=== PATIENT | male | born 1980 | race Caucasian/White ===

== ENCOUNTER 2016-12-26 11:20 | Emergency (ER) | payer MEDICAID ==
[2016-12-26 11:30] VITALS: BMI 25.0
[2016-12-26 11:32] VITALS: BP 141/85; PULSE 78; RESP 20; TEMP 97.9; O2SAT 99
[2016-12-26] MEDS ORDERED: Oxycodone/Acetaminophen 5/325 mg Tab PO STA (12:01)
[2016-12-26] MEDS ORDERED: Oxycodone/Acetaminophen 5/325 mg Tab ONE (12:10)
--- NOTE | 2016-12-26 12:44 | ED PDOC ---
HPI: Back Time Seen by Provider: 12/26/16 11:48 Chief Complaint (Nursing): Back Pain Chief Complaint (Provider): Back pain History Per: Patient History/Exam Limitations: no limitations Onset/Duration Of Symptoms: Other (Chronic) Current Symptoms Are (Timing): Still Present Additional Complaint(s): Felton Helm is a 36 year old with a past medical history of chronic back pain and lumbar spinal fusion, who presents to the ED complaining of ongoing lumbar left lateral pain, without associated weakness, urinary problems, or numbness. Patient states they were unable to make their pain management appointment with Dr. Steiner in [place], [place] and ran out of medicine. PMD: Dr. Dave tSeiner MD Past Medical History Reviewed: Historical Data, Nursing Documentation, Vital Signs Vital Signs: Last Vital Signs Temp 97.9 F 12/26/16 11:54 Pulse 78 12/26/16 11:54 Resp 20 12/26/16 11:54 BP 141/85 12/26/16 11:54 Pulse Ox 99 12/26/16 11:54 - Medical History PMH: Asthma, Back Problems Denies: Chronic Kidney Disease - Surgical History Other surgeries: Lower spinal fusion - Family History Family History: States: Unknown Family Hx - Immunization History Hx Tetanus Toxoid Vaccination: No Hx Influenza Vaccination: No Hx Pneumococcal Vaccination: No - Home Medications Home Medications: Ambulatory Orders Medication Instructions Recorded Albuterol HFA [Ventolin HFA 90 1 puff IH Q4 PRN #1 inh 09/28/15 mcg/actuation (8 g)] - Allergies Allergies/Adverse Reactions: Allergies Allergy/AdvReac Type Severity Reaction Status Date / Time aspirin Allergy Severe SWELLING Verified 12/26/16 11:53 ibuprofen Allergy Severe SWELLING Verified 12/26/16 11:53 Review of Systems ROS Statement: Except As Marked, All Systems Reviewed And Found Negative Genitourinary Male: Negative for: Dysuria, Frequency, Incontinence Musculoskeletal: Positive for: Back Pain Neurological: Negative for: Weakness, Numbness Physical Exam - Reviewed Nursing Documentation Reviewed: Yes Vital Signs Reviewed: Yes - Physical Exam Appears: Positive for: Well, Non-toxic, No Acute Distress Head Exam: Positive for: ATRAUMATIC, NORMOCEPHALIC Skin: Positive for: Normal Color, Warm, Dry Eye Exam: Positive for: EOMI, Normal appearance, PERRL Neck: Positive for: Normal, Painless ROM, Supple Cardiovascular/Chest: Positive for: Regular Rate, Rhythm. Negative for: Murmur Respiratory: Positive for: Normal Breath Sounds. Negative for: Respiratory Distress Gastrointestinal/Abdominal: Positive for: Normal Exam, Bowel Sounds, Soft. Negative for: Tenderness, Guarding, Rebound Back: Negative for: Normal Inspection (2 healed lumbar incisions) Extremity: Positive for: Normal ROM. Negative for: Pedal Edema, Deformity Neurologic/Psych: Positive for: Alert, Oriented. Negative for: Motor/Sensory Deficits - ECG O2 Sat by Pulse Oximetry: 99 (RA) Pulse Ox Interpretation: Normal Medical Decision Making Medical Decision Making: Time: 12:01 Initial Impression: Back pain Initial Plan: --Percocet [5/325 mg] 2 tab PO --Reevalutation Scribe Attestation: Documented by Jhon Cervantes, acting as a scribe for Johny Ewing III, DO. Provider Scribe Attestation: All medical record entries made by the Scribe were at my direction and personally dictated by me. I have reviewed the chart and agree that the record accurately reflects my personal performance of the history, physical exam, medical decision making, and the department course for this patient. I have also personally directed, reviewed, and agree with the discharge instructions and disposition. Disposition - Clinical Impression Clinical Impression: Chronic back pain - Patient ED Disposition Is Patient to be Admitted: No - Disposition Disposition: Routine/Home Disposition Time: 12:24 Condition: STABLE Additional Instructions: Followup with your pain management doctor for chronic pain prescriptions. Instructions: Chronic Pain (ED)
== END 2016-12-26 12:35 | disposition home or self-care (01) ==
LOC: H.ER 11:20
DX: M54.9 Dorsalgia, unspecified (principal)

== ENCOUNTER 2017-01-26 00:24 | Emergency (ER) | payer MEDICAID ==
[2017-01-26 00:24] VITALS: BMI 25.0
[2017-01-26 00:48] VITALS: BP 151/85; PULSE 101; RESP 16; TEMP 98.7; O2SAT 98
[2017-01-26] MEDS ORDERED: Oxycodone/Acetaminophen 5/325 mg Tab PO STA (01:05)
--- NOTE | 2017-01-26 02:11 | ED PDOC ---
HPI: Back Time Seen by Provider: 01/26/17 00:48 Chief Complaint (Nursing): Back Pain Chief Complaint (Provider): Low Back Pain Onset/Duration Of Symptoms: Days (14 days ago) Current Symptoms Are (Timing): Still Present Additional Complaint(s): Felton Helm is a 36 y/o male with a past medical history of chronic back pain and asthma, who presents to the ED complaining of low back pain, onset of 14 days ago. Patient reports of recently being incarcerated and released 3 days ago, and states that he sustained a fall, which caused his back pain to worsen. He was initially evaluated at the [facility], and the report showed no acute abnormalities. Of note, patient had a discectomy spine surgery done 6 months ago. Patient reports that he currently sees a paint spray tender, Dr. Steiner, and states that he lost access to his pain medication after being incarcerated. Of note, patient request IV morphine for the pain, but the drug will not be administered unless abnormalities in the imaging studies are present. Past Medical History Reviewed: Historical Data, Nursing Documentation, Vital Signs Vital Signs: Last Vital Signs Temp 98.7 F 01/26/17 00:45 Pulse 101 H 01/26/17 00:45 Resp 16 01/26/17 00:45 BP 151/85 H 01/26/17 00:45 Pulse Ox 98 01/26/17 00:45 - Medical History PMH: Asthma, Back Problems Denies: Chronic Kidney Disease - Surgical History Other surgeries: Discectomy - Family History Family History: States: No Known Family Hx - Social History Current smoker - smoking cessation education provided: No Ex-Smoker (has not smoked in the last 12 months): No Alcohol: None Drugs: Denies - Immunization History Hx Tetanus Toxoid Vaccination: No Hx Influenza Vaccination: No Hx Pneumococcal Vaccination: No - Home Medications Home Medications: Ambulatory Orders Medication Instructions Recorded Albuterol HFA [Ventolin HFA 90 1 puff IH Q4 PRN #1 inh 09/28/15 mcg/actuation (8 g)] traMADol [Ultram] 50 mg PO Q6 #12 tab 01/26/17 - Allergies Allergies/Adverse Reactions: Allergies Allergy/AdvReac Type Severity Reaction Status Date / Time aspirin Allergy Severe SWELLING Verified 12/26/16 11:53 ibuprofen Allergy Severe SWELLING Verified 10/25/17 11:53 Review of Systems ROS Statement: Except As Marked, All Systems Reviewed And Found Negative Constitutional: Negative for: Fever Musculoskeletal: Positive for: Back Pain (low back pain) Physical Exam - Reviewed Nursing Documentation Reviewed: Yes Vital Signs Reviewed: Yes - Physical Exam Appears: Positive for: Non-toxic, No Acute Distress Head Exam: Positive for: ATRAUMATIC, NORMOCEPHALIC Skin: Positive for: Normal Color, Warm Eye Exam: Positive for: Normal appearance, EOMI, PERRL ENT: Positive for: Normal ENT Inspection Neck: Positive for: Normal, Painless ROM, Supple Cardiovascular/Chest: Positive for: Regular Rate, Rhythm. Negative for: Murmur Respiratory: Positive for: Normal Breath Sounds. Negative for: Respiratory Distress Gastrointestinal/Abdominal: Positive for: Normal Exam, Soft. Negative for: Tenderness Back: Positive for: Normal Inspection. Negative for: Other (Midline Tenderness , CVA Tenderness) Extremity: Positive for: Normal ROM. Negative for: Pedal Edema, Deformity Neurologic/Psych: Positive for: Alert, Oriented. Negative for: Motor/Sensory Deficits - ECG O2 Sat by Pulse Oximetry: 98 (RA) Pulse Ox Interpretation: Normal Medical Decision Making Medical Decision Making: Time: --01:05 Initial Impression: -- 36 y/o male with [id number] Back Pain Initial Plan: --OxyCodone/Acetaminophen 2 tab PO --Lumbar Spine W/O Contrast Reassess --02:42 FINDINGS:CT Lumbar Spine Without Intravenous Contrast Vertebrae: No acute fracture. Fusion from L5 to S1 levels with paired pedicle screws and posterior rods. No hardware complications. Resection of RIGHT L5 lower facet/lamina. Discs/spinal canal/neural foramina: 0.4 x 0.6 cm ossific or calcific density within RIGHT paracentral region of canal at L5-S1 level. No significant spinal stenosis. Soft tissues: Unremarkable. IMPRESSION: 1. No fracture. 2. Small calcific or ossific density within canal at L5-S1 level. 3. If back pain persists, consider MRI for further evaluation. Patient stable for discharge home; requesting Percocet RX. Patient informed he would not be provided RX for narcotics due to his his pain management contract with Dr Steiner. He is agreeable to 3 day supply of Ultram and will follow up with his paint spray tender. Dx Chronic Back Pain Stable Scribe Attestation: Documented by Patel Poon acting as a scribe for Paulino Schuster MD. Provider Attestation: All medical record entries made by the Scribe were at my direction and personally dictated by me. I have reviewed the chart and agree that the record accurately reflects my personal performance of the history, physical exam, medical decision making, and the department course for this patient. I have also personally directed, reviewed, and agree with the discharge instructions and disposition. Disposition - Clinical Impression Clinical Impression: Chronic back pain - Patient ED Disposition Is Patient to be Admitted: No - Disposition Disposition: Routine/Home Disposition Time: 03:00 Condition: STABLE Prescriptions: traMADol [Ultram] 50 mg PO Q6 #12 tab Instructions: Chronic Back Pain (ED) Forms: [employer] (Chinese)
--- NOTE | 2017-01-26 02:42 | CT ---
EXAM: CT Lumbar Spine Without Intravenous Contrast CLINICAL HISTORY: 36 years old, male; Pain; Low back pain; Prior surgery; Additional info: Low back pain HX discectomy TECHNIQUE: Axial computed tomography images of the lumbar spine without intravenous contrast. All CT scans at this facility use one or more dose reduction techniques, viz.: automated exposure control; ma/kV adjustment per patient size (including targeted exams where dose is matched to indication; i.e. head); or iterative reconstruction technique. Coronal and sagittal reformatted images were created and reviewed. COMPARISON: No relevant prior studies available. FINDINGS: Vertebrae: No acute fracture. Fusion from L5 to S1 levels with paired pedicle screws and posterior rods. No hardware complications. Resection of RIGHT L5 lower facet/lamina. Discs/spinal canal/neural foramina: 0.4 x 0.6 cm ossific or calcific density within RIGHT paracentral region of canal at L5-S1 level. No significant spinal stenosis. Soft tissues: Unremarkable. IMPRESSION: 1. No fracture. 2. Small calcific or ossific density within canal at L5-S1 level. 3. If back pain persists, consider MRI for further evaluation.
[2017-01-26] MEDS ORDERED: Morphine 4 MG/ML VIAL ONE (02:49)
== END 2017-01-26 03:30 | disposition home or self-care (01) ==
LOC: H.ER 00:24
DX: G89.29 Other chronic pain (principal); J45.909 Unspecified asthma, uncomplicated
CPT/HCPCS: 72131; 96372; 99282; J2270

== ENCOUNTER 2017-03-16 00:24 | Emergency (ER) | payer SELFPAY ==
[2017-03-16 00:46] VITALS: BMI 23.1
[2017-03-16 00:48] VITALS: BP 149/96; PULSE 95; RESP 16; TEMP 98.2; O2SAT 97
[2017-03-16] MEDS ORDERED: Oxycodone/Acetaminophen 5/325 mg Tab PO STA (01:36)
[2017-03-16] MEDS ORDERED: Oxycodone/Acetaminophen 5/325 mg Tab ONE (01:43)
--- NOTE | 2017-03-16 02:43 | ED PDOC ---
HPI: Back Time Seen by Provider: 03/16/17 00:58 Chief Complaint (Nursing): Back Pain Chief Complaint (Provider): Back Pain History Per: Patient History/Exam Limitations: no limitations Onset/Duration Of Symptoms: Persistent Current Symptoms Are (Timing): Constant Severity: Moderate Previous Symptoms: Chronic Pain (back - was seeing a pain management) Additional Complaint(s): 37 year old male presents to ED with complaints of back pain and has a history of lower back pain. Patient notes he used to attend physical therapy and see a pain management doctor before being discharged from that care. States he has not had pain medication since discharge and cannot take NSAIDs due to an allergic reaction. (-) recent trauma/injury, lower extremity weakness, bowel incontinence, or fever. PCP: Dr. Steiner Past Medical History Reviewed: Historical Data, Nursing Documentation, Vital Signs Vital Signs: Last Vital Signs Temp 98.2 F 03/16/17 00:45 Pulse 95 H 03/16/17 00:45 Resp 16 03/16/17 00:45 BP 149/96 H 03/16/17 00:45 Pulse Ox 97 03/16/17 00:45 - Medical History PMH: Asthma, Back Problems (chronic ) Denies: Chronic Kidney Disease - Surgical History Surgical History: Back Surgery - Family History Family History: States: Unknown Family Hx - Social History Current smoker - smoking cessation education provided: No Ex-Smoker (has not smoked in the last 12 months): Yes Alcohol: None Drugs: Cannabis - Immunization History Hx Tetanus Toxoid Vaccination: No Hx Influenza Vaccination: No Hx Pneumococcal Vaccination: No - Home Medications Home Medications: Ambulatory Orders Medication Instructions Recorded Albuterol HFA [Ventolin HFA 90 1 puff IH Q4 PRN #1 inh 09/28/15 mcg/actuation (8 g)] traMADol [Ultram] 50 mg PO Q6 #12 tab 01/26/17 Albuterol 0.083% [Albuterol 3 ml IH Q6 PRN 01/28/17 Sulfate 3 Ml] oxyCODONE/Acetaminophen [Percocet 1 tab PO QID PRN 01/28/17 5/325 mg Tab] - Allergies Allergies/Adverse Reactions: Allergies Allergy/AdvReac Type Severity Reaction Status Date / Time aspirin Allergy Severe SWELLING Verified 03/16/17 00:45 ibuprofen Allergy Severe SWELLING Verified 03/16/17 00:45 Review of Systems ROS Statement: Except As Marked, All Systems Reviewed And Found Negative Constitutional: Negative for: Fever Gastrointestinal: Negative for: Other ((-) bowel incontinence) Musculoskeletal: Positive for: Back Pain Neurological: Negative for: Weakness ((-) lower extremity weakness) Physical Exam - Reviewed Nursing Documentation Reviewed: Yes Vital Signs Reviewed: Yes - Physical Exam Appears: Positive for: Non-toxic, Uncomfortable (mild/moderate painful distress) Skin: Positive for: Normal Color, Warm, Dry Eye Exam: Positive for: Normal appearance Neck: Positive for: Normal, Painless ROM, Supple Cardiovascular/Chest: Positive for: Regular Rate, Rhythm. Negative for: Murmur Respiratory: Positive for: Normal Breath Sounds. Negative for: Respiratory Distress Gastrointestinal/Abdominal: Positive for: Normal Exam Back: Positive for: Vertebral Tenderness (paralumbar tenderness). Negative for : Normal Inspection, Other ((-) bilateral straight leg test) Extremity: Positive for: Normal ROM. Negative for: Deformity Neurologic/Psych: Positive for: Alert, Oriented. Negative for: Motor/Sensory Deficits - ECG O2 Sat by Pulse Oximetry: 97 (RA) Pulse Ox Interpretation: Normal Medical Decision Making Medical Decision Makin Initial impression: acute on-chornic back pain Initial plan: * Percocet 2 tab PO * Re-eval Patient reports improvement of his pain, is observed ambulating in the emergency room with a normal gait. Patient is requesting to be discharged home. Patient advised to follow-up with his PMD or his pain management doctor. Scribe Attestation: Documented by Denise Santana acting as a scribe for Isabelle Perez MD. Scribe Attestation: All medical record entries made by the Scribe were at my direction and personally dictated by me. I have reviewed the chart and agree that the record accurately reflects my personal performance of the history, physical exam, medical decision making, and the department course for this patient. I have also personally directed, reviewed, and agree with the discharge instructions and disposition. Disposition - Clinical Impression Clinical Impression: Low back pain Counseled Patient/Family Regarding: Diagnosis, Need For Followup - Disposition Disposition: Routine/Home Disposition Time: 02:00 Condition: STABLE Additional Instructions: Follow up with your pmd in 2 days without fail. Instructions: Back Pain (ED) Forms: [employer] (Moroccan) Print Language: FAROESE
== END 2017-03-16 01:50 | disposition home or self-care (01) ==
LOC: H.ER 00:24
DX: M54.9 Dorsalgia, unspecified (principal); G89.29 Other chronic pain; J45.909 Unspecified asthma, uncomplicated

== ENCOUNTER 2017-05-19 08:47 | Emergency (ER) | payer SELFPAY ==
[2017-05-19 08:54] VITALS: BP 125/84; PULSE 85; RESP 19; TEMP 98.2; O2SAT 100
[2017-05-19 09:30] VITALS: BMI 21.5
[2017-05-19] MEDS ORDERED: Dexamethasone 10 MG in Dextrose 5% In Water 50 ML IV ONE (09:53)
[2017-05-19] MEDS ORDERED: Morphine 4 MG/ML VIAL ONE (09:59)
[2017-05-19] MEDS ORDERED: HYDROmorphone 0.5 mg/0.5 ml ISec IVP STA (13:07)
[2017-05-19] MEDS ORDERED: HYDROmorphone 0.5 mg/0.5 ml ISec ONE (13:36)
--- NOTE | 2017-05-19 13:47 | ED PDOC ---
HPI: Back Time Seen by Provider: 05/19/17 09:22 Chief Complaint (Nursing): Back Pain Chief Complaint (Provider): Back Pain History Per: Patient History/Exam Limitations: no limitations Onset/Duration Of Symptoms: Days (x3) Current Symptoms Are (Timing): Still Present Additional Complaint(s): 37 y/o male presents to the ED complaining of left-sided lower back pain for the past few days. Patient reports having similar episodes of pain in the past, on and off. Not taking any pain medications for the last few months. He denies any associated fever, chills, numbness, weakness, incontinence, or dysuria. Reports history of back surgery and chronic pain but does not have follow up with pain management. Patient also states the pain makes him feel depressed and suicidal. PMD: None Past Medical History Reviewed: Historical Data, Nursing Documentation, Vital Signs Vital Signs: Last Vital Signs Temp 98.2 F 05/19/17 08:54 Pulse 85 05/19/17 08:54 Resp 19 05/19/17 08:54 BP 125/84 05/19/17 08:54 Pulse Ox 100 05/19/17 08:54 - Medical History PMH: Asthma, Back Problems (chronic ) Denies: Chronic Kidney Disease - Surgical History Surgical History: Back Surgery - Family History Family History: States: Unknown Family Hx - Social History Ex-Smoker (has not smoked in the last 12 months): Yes Alcohol: None Drugs: Cannabis - Immunization History Hx Tetanus Toxoid Vaccination: No Hx Influenza Vaccination: No Hx Pneumococcal Vaccination: No - Home Medications Home Medications: Ambulatory Orders Medication Instructions Recorded Albuterol HFA [Ventolin HFA 90 1 puff IH Q4 PRN #1 inh 09/28/15 mcg/actuation (8 g)] traMADol [Ultram] 50 mg PO Q6 #12 tab 01/26/17 Albuterol 0.083% [Albuterol 3 ml IH Q6 PRN 01/28/17 Sulfate 3 Ml] oxyCODONE/Acetaminophen [Percocet 1 tab PO QID PRN 01/28/17 5/325 mg Tab] - Allergies Allergies/Adverse Reactions: Allergies Allergy/AdvReac Type Severity Reaction Status Date / Time aspirin Allergy Severe SWELLING Verified 03/16/17 00:45 ibuprofen Allergy Severe SWELLING Verified 03/16/17 00:45 Review of Systems ROS Statement: Except As Marked, All Systems Reviewed And Found Negative Constitutional: Negative for: Fever, Chills Genitourinary Male: Negative for: Dysuria, Incontinence, Hematuria Musculoskeletal: Positive for: Back Pain (left lower) Neurological: Negative for: Weakness, Numbness Psych: Positive for: Depression, Suicidal ideation Physical Exam - Reviewed Nursing Documentation Reviewed: Yes Vital Signs Reviewed: Yes - Physical Exam Appears: Positive for: Non-toxic, No Acute Distress Head Exam: Positive for: ATRAUMATIC, NORMAL INSPECTION, NORMOCEPHALIC Skin: Positive for: Normal Color, Warm, Dry Eye Exam: Positive for: EOMI, Normal appearance, PERRL Neck: Positive for: Normal, Painless ROM, Supple Cardiovascular/Chest: Positive for: Regular Rate, Rhythm. Negative for: Murmur Respiratory: Positive for: Normal Breath Sounds. Negative for: Accessory Muscle Use, Respiratory Distress Gastrointestinal/Abdominal: Positive for: Soft. Negative for: Tenderness, Distended Back: Positive for: Other (Left lower paralumbar tenderness). Negative for: L CVA Tenderness, R CVA Tenderness Extremity: Positive for: Normal ROM. Negative for: Tenderness, Pedal Edema Neurologic/Psych: Positive for: Alert, Oriented (x3). Negative for: Motor/ Sensory Deficits - ECG O2 Sat by Pulse Oximetry: 100 (RA) Pulse Ox Interpretation: Normal Medical Decision Making Medical Decision Making: Impression: Acute on Chronic Back Pain Time: 9:52 Initial Plan: --Urine drug screen --Alcohol serum --Decadron injection --Valium 5 mg PO --Morphine 4 mg IVP --Crisis evaluation Alcohol level: 66 Patient reports improvement in pain after medications given. 15:00 Patient signed out to Dr. Belle Ramos, pending crisis evaluation. Scribe Attestation: Documented by Destiny Turner, acting as a scribe for Cecille Minor MD Provider Scribe Attestation: All medical record entries made by the Scribe were at my direction and personally dictated by me. I have reviewed the chart and agree that the record accurately reflects my personal performance of the history, physical exam, medical decision making, and the department course for this patient. I have also personally directed, reviewed, and agree with the discharge instructions and disposition. Disposition - Clinical Impression Clinical Impression: Chronic back pain, Substance abuse - Patient ED Disposition Is Patient to be Admitted: Transfer of Care - Disposition Referrals: [facility] [Outside] Disposition: Transfer of Care Disposition Time: 15:00 Condition: IMPROVED Instructions: Drug Abuse and Drug Addiction (DC), Chronic Pain Patient Signed Over To: Belle Ramos (pending crisis eval)
--- NOTE | 2017-05-19 15:46 | ED PDOC ---
- ECG O2 Sat by Pulse Oximetry: 100 (RA) Disposition - Clinical Impression Clinical Impression: Chronic back pain, Substance abuse - POA Present On Arrival: None - Disposition Referrals: [facility] [Outside] Disposition: Routine/Home Disposition Time: 15:45 Condition: IMPROVED Instructions: Chronic Pain, Drug Abuse and Drug Addiction (DC) Forms: [employer] (Lithuanian) Addendum Addendum: 05/19/17 15:00 Pt signed out by [address]. Minor pending Crisis evaluation. 15:45 Pt cleared by Crisis, dx substance abuse.
[2017-05-19 15:55] LABS: BARBITURATES, UR NEGATIVE (NEGATIVE); BENZODIAZEPINES, UR POSITIVE (NEGATIVE); OPIATES, UR POSITIVE (NEGATIVE); PHENCYCLIDINE, UR POSITIVE (NEGATIVE)
== END 2017-05-19 16:00 | disposition home or self-care (01) ==
LOC: H.ER 08:47
DX: M54.5 Low back pain (principal); G89.29 Other chronic pain; J45.909 Unspecified asthma, uncomplicated; Z87.891 Personal history of nicotine dependence
CPT/HCPCS: 96374; 96375; 99283; G0480; J1100; J1170; J2270

== ENCOUNTER 2017-07-13 21:48 | Emergency (ER) | payer SELFPAY ==
[2017-07-13 21:48] VITALS: BMI 21.5
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
[2017-07-13 23:36] VITALS: BP 131/89; PULSE 95; RESP 16; TEMP 98.2
[2017-07-13 23:52] LABS: BARBITURATES, UR NEGATIVE (NEGATIVE); BENZODIAZEPINES, UR NEGATIVE (NEGATIVE); OPIATES, UR NEGATIVE (NEGATIVE); PHENCYCLIDINE, UR POSITIVE (NEGATIVE)
[2017-07-13 23:58] VITALS: O2SAT 97
--- NOTE | 2017-07-14 00:33 | ED PDOC ---
- ECG O2 Sat by Pulse Oximetry: 97 (RA) Medical Decision Making Medical Decision Making: Time: 00:00 --Patient is endorsed to provider from Dr. Isabelle Perez. Pending clinical sobriety and crisis evaluation. Time: 0125 --Upon crisis evaluation, patient is medically stable and cleared for incarceration. He requires no further treatment in the ED at this time. Patient will be discharged to [facility]. Counseling was provided and all questions were answered regarding diagnosis. There is agreement to discharge plan. Return if symptoms persist or worsen. Clinical Impression: PCP abuse; Cannabis abuse Scribe Attestation: Documented by Susan Rollins, acting as a scribe for Paulino Schuster MD. Provider Scribe Attestation: All medical record entries made by the Scribe were at my direction and personally dictated by me. I have reviewed the chart and agree that the record accurately reflects my personal performance of the history, physical exam, medical decision making, and the department course for this patient. I have also personally directed, reviewed, and agree with the discharge instructions and disposition. Disposition - Clinical Impression Clinical Impression: PCP abuse, Cannabis abuse - POA Present On Arrival: None - Disposition Disposition: Discharged/Transfer to Law Enforcement Disposition Time: 01:25 Condition: STABLE Additional Instructions: Patient is medically and psychiatrically stable for incarceration Instructions: Marijuana Use and Addiction Forms: [email or web address] ([place])
== END 2017-07-14 01:45 | disposition home or self-care (01) ==
LOC: H.ER 21:48
DX: F12.10 Cannabis abuse, uncomplicated (principal); F16.10 Hallucinogen abuse, uncomplicated; J45.909 Unspecified asthma, uncomplicated
CPT/HCPCS: 99284; G0480

== ENCOUNTER 2017-11-05 20:52 | Emergency (ER) | payer MEDICAID ==
[2017-11-05 20:52] VITALS: BMI 21.5
[2017-11-05 21:00] VITALS: TEMP 98.4
[2017-11-05] MEDS ORDERED: Albuterol-Ipratrop 3 mg / 0.5 (3 ml) UD IH STA (21:14)
--- NOTE | 2017-11-05 21:18 | ED PDOC ---
HPI: General Adult Time Seen by Provider: 11/05/17 21:11 Chief Complaint (Nursing): Shortness Of Breath Chief Complaint (Provider): Medical and Psych Eval History Per: Patient History/Exam Limitations: no limitations Current Symptoms Are (Timing): Still Present Additional Complaint(s): 37 year old male presents to the ED by custody for medical and psychiatric evaluation prior to incarceration. Patient has a history of asthma and ran out of his inhaler. Denies cough or fever. PMD: none Past Medical History Reviewed: Historical Data, Nursing Documentation, Vital Signs Vital Signs: Last Vital Signs Temp 98.4 F 11/05/17 20:57 Pulse 83 11/05/17 20:57 Resp 16 11/05/17 20:57 BP 155/115 H 11/05/17 20:57 Pulse Ox 98 11/05/17 21:20 - Medical History PMH: Asthma, Back Problems (chronic ) Denies: Diabetes, Hepatitis, HIV, HTN, Chronic Kidney Disease, Seizures, Sexually Transmitted Disease - Surgical History Surgical History: Back Surgery - Family History Family History: States: Unknown Family Hx - Immunization History Hx Tetanus Toxoid Vaccination: No Hx Influenza Vaccination: No Hx Pneumococcal Vaccination: No - Home Medications Home Medications: Ambulatory Orders Medication Instructions Recorded oxyCODONE/Acetaminophen [Percocet 1 tab PO QID PRN #10 tab 08/02/17 5/325 mg Tab] Albuterol HFA [Ventolin HFA 90 2 puff IH Q4H #1 puff 11/05/17 mcg/actuation (8 g)] - Allergies Allergies/Adverse Reactions: Allergies Allergy/AdvReac Type Severity Reaction Status Date / Time aspirin Allergy Severe SWELLING Verified 11/05/17 20:57 ibuprofen Allergy Severe SWELLING Unverified 11/05/17 20:57 Review of Systems ROS Statement: Except As Marked, All Systems Reviewed And Found Negative Constitutional: Negative for: Fever Respiratory: Negative for: Cough Physical Exam - Reviewed Nursing Documentation Reviewed: Yes Vital Signs Reviewed: Yes - Physical Exam Appears: Positive for: Non-toxic, No Acute Distress Head Exam: Positive for: ATRAUMATIC, NORMOCEPHALIC Skin: Positive for: Normal Color, Warm, Dry Eye Exam: Positive for: Normal appearance Neck: Positive for: Normal, Painless ROM Cardiovascular/Chest: Positive for: Regular Rate, Rhythm. Negative for: Murmur Respiratory: Positive for: Normal Breath Sounds. Negative for: Wheezing, Respiratory Distress Gastrointestinal/Abdominal: Positive for: Normal Exam, Soft. Negative for: Tenderness Extremity: Positive for: Normal ROM Neurologic/Psych: Positive for: Alert, Oriented. Negative for: Motor/Sensory Deficits - ECG O2 Sat by Pulse Oximetry: 98 (RA) Pulse Ox Interpretation: Normal - Progress Re-evaluation Time: 21:23 Condition: Improved (BP 148/98) Medical Decision Making Medical Decision Making: Initial Impression: Medical and Psychiatric Evaluation Initial Plan: --Albuterol 3mL INH --Peak flow Scribe Attestation: Documented by Anand Mejia acting as a scribe for Renny Cooper MD. Provider Scribe Attestation: All medical record entries made by the Scribe were at my direction and personally dictated by me. I have reviewed the chart and agree that the record accurately reflects my personal performance of the history, physical exam, medical decision making, and the department course for this patient. I have also personally directed, reviewed, and agree with the discharge instructions and disposition. Disposition - Clinical Impression Clinical Impression: Asthma - Patient ED Disposition Is Patient to be Admitted: No Counseled Patient/Family Regarding: Diagnosis, Need For Followup, Rx Given - Disposition Referrals: [facility] [Outside] Disposition: Discharged/Transfer to Law Enforcement Disposition Time: 21:22 Condition: FAIR Additional Instructions: Medically and psychiatrically stable for incarceration Prescriptions: Albuterol HFA [Ventolin HFA 90 mcg/actuation (8 g)] 2 puff IH Q4H #1 puff Instructions: Asthma in Adults Forms: [facility] (Citizen Of [place])
[2017-11-05] MEDS ORDERED: Albuterol-Ipratrop 3 mg / 0.5 (3 ml) UD ONE (21:26)
[2017-11-05 21:28] VITALS: RESP 18
[2017-11-05 21:37] VITALS: BP 147/93; PULSE 68; O2SAT 100
== END 2017-11-05 22:06 ==
LOC: H.ER 20:52
DX: J45.909 Unspecified asthma, uncomplicated (principal)